=== PATIENT | female | born 1945 | race Caucasian/White ===

== ENCOUNTER 2018-03-22 17:56 | Inpatient (IN) | payer MEDICARE, MEDICAID ==
[2018-03-22] MEDS: LORAZEPAM 2 MG INJ IV (18:27)
[2018-03-22] MEDS: ASPIRIN 325 MG TAB PO (18:27)
[2018-03-22] MEDS: NITROGLYCERIN 2% 1 GM OINT PKT TD (18:27)
[2018-03-22 18:30] LABS: ADD MAN DIFF? NO
[2018-03-22 18:35] LABS: BASOPHIL # 0.1 10^3/ul (0.0-0.1); BASOPHILS % 0.8 % (0.0-2.0); EOSINOPHILS # 0.2 10^3/ul (0.0-0.5); EOSINOPHILS % 2.7 % (0.0-7.0); HEMATOCRIT 44.5 % (37.0-47.0); HEMOGLOBIN 14.8 g/dl (12.0-16.0); LYMPHOCYTES # 2.9 10^3/ul (0.8-2.9); LYMPHOCYTES % 38.9 % (15.0-51.0); MEAN CORPUSCULAR HEMOGLOBIN 31.8 pg (29.0-33.0); MEAN CORPUSCULAR HGB CONC 33.3 g/dl (32.0-37.0); MEAN CORPUSCULAR VOLUME 95.7 fl (82.0-101.0); MONOCYTE # 0.6 10^3/ul (0.3-0.9); MONOCYTES % 7.6 % (0.0-11.0); NEUTROPHIL # 3.7 10^3/ul (1.6-7.5); NEUTROPHILS % 49.9 % (39.0-77.0); PLATELET COUNT 218 10^3/UL (140-415); RED BLOOD COUNT 4.65 10^6/ul (4.20-5.40); RED CELL DISTRIBUTION WIDTH 12.6 % (11.5-14.5)
[2018-03-22 18:35] LABS: WHITE BLOOD COUNT 7.5 10^3/ul (4.8-10.8)
[2018-03-22] MEDS: ALBUTEROL 0.5% (NEB) 2.5 MG/0.5 ML AMP INH (18:35)
[2018-03-22] MEDS: IPRATROPIUM (NEB) 0.5 MG/2.5 ML AMP INH (18:35)
[2018-03-22 18:48] LABS: INR 1.14; PROTIME 14.7 Sec (11.9-14.9); PT RATIO 1.1
[2018-03-22 18:49] LABS: PARTIAL THROMBOPLASTIN TIME 30.8 Sec (23.0-35.0)
[2018-03-22 18:53] LABS: ALANINE AMINOTRANSFERASE 76 IU/L (13-69); ALBUMIN/GLOBULIN RATIO 1.14; ALKALINE PHOSPHATASE 169 IU/L (42-121); ANION GAP 7 (5-13); ASPARTATE AMINO TRANSFERASE 127 IU/L (15-46); BILIRUBIN,INDIRECT 0.3 mg/dl (0-1.1); BILIRUBIN,TOTAL 0.3 mg/dl (0.2-1.3); BLOOD UREA NITROGEN 14 mg/dl (7-20); CALCIUM 8.8 mg/dl (8.4-10.2); CARBON DIOXIDE 24 mmol/L (21-31); CHLORIDE 109 mmol/L (97-110); CREATINE KINASE 59 IU/L (23-200); CREATININE 0.78 mg/dl (0.44-1.00); GLUCOSE 363 mg/dl (70-220); POTASSIUM 4.4 mmol/L (3.5-5.1); SODIUM 140 mmol/L (135-144); TOTAL PROTEIN 7.5 g/dl (6.1-8.1)
[2018-03-22 19:05] LABS: B-TYPE NATRIURETIC PEPTIDE 2250 PG/ML (0-125); CK INDEX 1.4; CK-MB 0.83 ng/ml (0.0-2.4); TROPONIN-I < 0.012 ng/ml (0.000-0.120)
[2018-03-22] MEDS: ONDANSETRON (ODT) 4 MG TAB ODT (19:15)
[2018-03-22 19:31] LABS: ADD UMIC YES; UR ASCORBIC ACID NEGATIVE (NEGATIVE); UR BILIRUBIN (Dip) NEGATIVE (NEGATIVE); UR BLOOD (Dip) NEGATIVE (NEGATIVE); UR CLARITY CLEAR (CLEAR); UR COLOR YELLOW (YELLOW); UR GLUCOSE (Dip) 3+ mg/dL (NEGATIVE); UR KETONES (Dip) NEGATIVE (NEGATIVE); UR LEUKOCYTE ESTERASE (Dip) NEGATIVE Leu/ul (NEGATIVE); UR NITRITE (Dip) NEGATIVE (NEGATIVE); UR RBC 0 /HPF (0-5); UR SPECIFIC GRAVITY (Dip) 1.013 (1.003-1.030); UR TOTAL PROTEIN (Dip) 2+ mg/dl (NEGATIVE); UR UROBILINOGEN (Dip) NEGATIVE (NEGATIVE); UR WBC 0 /HPF (0-5)
[2018-03-22] MEDS: FUROSEMIDE 40 MG INJ IV (19:43)
[2018-03-22] MEDS ORDERED: ACETAMINOPHEN 325 MG TAB PO (20:00)
[2018-03-22] MEDS ORDERED: ONDANSETRON 4 MG INJ IV ×2 (20:00→21:00)
[2018-03-22 20:49] LABS: AADO2 Arterial 189.1 mmHg (7.0-24.0); Allen Test ACCEPTAB; Arterial Base Excess 1.2 mmol/L (-3.0-3); Arterial Blood Gas Oxygen Sat 99.1 mmHG (95.0-100.0); Arterial COHb 0.5 % (0.0-3.0); Arterial Fraction of Oxyhgb 98.3 % (93.0-99.0); Arterial HCO3 26.7 mmol/L (22.0-26.0); Arterial MetHb 0.3 % (0.0-1.5); Arterial pCO2 45.2 mmhg (35-45); Blood Gas IEPAP 15/5; Blood Gas PS 10; MODE MASK - BIPAP; Site Right Radial
[2018-03-22] MEDS ORDERED: NACL 0.9% 3 ML SYG IV (21:00)
[2018-03-22] MEDS ORDERED: morphine 2 MG INJ IV (21:00)
[2018-03-22] MEDS: FUROSEMIDE 20 MG INJ IV (21:00)
[2018-03-22] MEDS: POTASSIUM CHLORIDE (SR) 20 MEQ TAB PO (21:09)
[2018-03-22] MEDS: FAMOTIDINE 20 MG INJ IV (21:25)
[2018-03-22] MEDS: INSULIN LISPRO 100 UNIT/ML VIAL SC (21:30)
[2018-03-23] MEDS ORDERED: GLUCOSE GEL 15 GRAM TUBE BUCCAL (03:00)
[2018-03-23] MEDS ORDERED: GLUCAGON 1 MG INJ IM (03:00)
[2018-03-23] MEDS ORDERED: DEXTROSE 50% 50 ML SYRINGE IV ×2 (03:00)
[2018-03-23] MEDS ORDERED: GLUCOSE GEL 15 GRAM TUBE PO ×2 (03:00)
[2018-03-23 05:21] LABS: ADD MAN DIFF? NO
[2018-03-23 05:27] LABS: BASOPHILS % 0.6 % (0.0-2.0); EOSINOPHILS # 0.2 10^3/ul (0.0-0.5); EOSINOPHILS % 2.4 % (0.0-7.0); HEMATOCRIT 40.4 % (37.0-47.0); HEMOGLOBIN 13.5 g/dl (12.0-16.0); LYMPHOCYTES # 2.7 10^3/ul (0.8-2.9); MEAN CORPUSCULAR HEMOGLOBIN 31.9 pg (29.0-33.0); MEAN CORPUSCULAR HGB CONC 33.4 g/dl (32.0-37.0); MEAN CORPUSCULAR VOLUME 95.5 fl (82.0-101.0); MEAN PLATELET VOLUME 10.8 fl (7.4-10.4); MONOCYTE # 0.5 10^3/ul (0.3-0.9); MONOCYTES % 7.6 % (0.0-11.0); NEUTROPHIL # 3.3 10^3/ul (1.6-7.5); PLATELET COUNT 195 10^3/UL (140-415); RED BLOOD COUNT 4.23 10^6/ul (4.20-5.40); RED CELL DISTRIBUTION WIDTH 12.6 % (11.5-14.5)
[2018-03-23 05:27] LABS: WHITE BLOOD COUNT 6.8 10^3/ul (4.8-10.8)
[2018-03-23] MEDS: FUROSEMIDE 20 MG INJ IV ×2 (06:01→17:26)
[2018-03-23 06:06] LABS: ALANINE AMINOTRANSFERASE 69 IU/L (13-69); ALBUMIN 3.6 g/dl (3.3-4.9); ALBUMIN/GLOBULIN RATIO 1.16; ALKALINE PHOSPHATASE 134 IU/L (42-121); ANION GAP 8 (5-13); ASPARTATE AMINO TRANSFERASE 63 IU/L (15-46); BILIRUBIN,INDIRECT 0.4 mg/dl (0-1.1); BILIRUBIN,TOTAL 0.4 mg/dl (0.2-1.3); BLOOD UREA NITROGEN 16 mg/dl (7-20); CALCIUM 9.1 mg/dl (8.4-10.2); CARBON DIOXIDE 28 mmol/L (21-31); CHLORIDE 108 mmol/L (97-110); CREATININE 0.66 mg/dl (0.44-1.00); GLUCOSE 92 mg/dl (70-220); POTASSIUM 3.2 mmol/L (3.5-5.1); SODIUM 144 mmol/L (135-144); TOTAL PROTEIN 6.7 g/dl (6.1-8.1)
[2018-03-23] MEDS: INSULIN ASPART [NOVOLOG] 3 ML PEN SC ×4 (07:51→20:48)
[2018-03-23 08:03] LABS: HEMOGLOBIN A1C 13.7 % (0-5.9)
[2018-03-23] MEDS: FAMOTIDINE 20 MG INJ IV (08:43)
[2018-03-23] MEDS: ENOXAPARIN 30 MG/0.3 ML SYG SC (08:49)
[2018-03-23] MEDS: ACETAMINOPHEN 325 MG TAB PO (15:50)
[2018-03-23] MEDS: POTASSIUM CHLORIDE (SR) 20 MEQ TAB PO (20:12)
[2018-03-24] MEDS: FUROSEMIDE 20 MG INJ IV (05:16)
[2018-03-24] MEDS: ACETAMINOPHEN 325 MG TAB PO ×2 (06:04→15:32)
[2018-03-24] MEDS: INSULIN ASPART [NOVOLOG] 3 ML PEN SC ×5 (07:47→21:10)
[2018-03-24] MEDS: FAMOTIDINE 20 MG INJ IV (08:21)
[2018-03-24] MEDS: ENOXAPARIN 30 MG/0.3 ML SYG SC (08:42)
[2018-03-24] MEDS: hydrALAzine 20 MG INJ IV ×2 (14:31→18:41)
[2018-03-24 15:26] LABS: ANION GAP 8 (5-13); BLOOD UREA NITROGEN 22 mg/dl (7-20); CALCIUM 10.1 mg/dl (8.4-10.2); CARBON DIOXIDE 27 mmol/L (21-31); CHLORIDE 104 mmol/L (97-110); CREATINE KINASE 52 IU/L (23-200); CREATININE 0.68 mg/dl (0.44-1.00); GLUCOSE 255 mg/dl (70-220); POTASSIUM 4.4 mmol/L (3.5-5.1); SODIUM 139 mmol/L (135-144)
[2018-03-24 15:36] LABS: CK INDEX 1.6
[2018-03-24 15:38] LABS: TROPONIN-I < 0.012 ng/ml (0.000-0.120)
[2018-03-24 16:35] LABS: CK-MB 0.84 ng/ml (0.0-2.4)
[2018-03-24] MEDS: FUROSEMIDE 40 MG INJ IV (17:11)
[2018-03-24] MEDS: metFORMIN (XR) 500 MG TAB PO (20:12)
[2018-03-24] MEDS: LISINOPRIL 5 MG TAB PO (20:13)
[2018-03-24] MEDS: ATORVASTATIN 20 MG TAB PO (20:13)
[2018-03-24] MEDS: APIXABAN 5 MG TABLET PO (20:13)
[2018-03-24] MEDS: INSULIN GLARGINE [LANTus] (100 UNITS/ML) SYG SC (21:10)
[2018-03-24] MEDS ORDERED: morphine LIQ (10 MG/5 ML) CUP PO (23:00)
[2018-03-25] MEDS: ACETAMINOPHEN 325 MG TAB PO ×2 (00:39→17:51)
[2018-03-25] MEDS: ACCU-CHEK XX (01:23)
[2018-03-25] MEDS: FUROSEMIDE 40 MG INJ IV ×2 (05:14→17:10)
[2018-03-25 05:21] LABS: ADD MAN DIFF? NO
[2018-03-25 05:27] LABS: BASOPHIL # 0.1 10^3/ul (0.0-0.1); BASOPHILS % 0.7 % (0.0-2.0); EOSINOPHILS # 0.3 10^3/ul (0.0-0.5); EOSINOPHILS % 3.7 % (0.0-7.0); HEMATOCRIT 46.5 % (37.0-47.0); HEMOGLOBIN 15.6 g/dl (12.0-16.0); LYMPHOCYTES # 2.4 10^3/ul (0.8-2.9); LYMPHOCYTES % 32.9 % (15.0-51.0); MEAN CORPUSCULAR HEMOGLOBIN 31.6 pg (29.0-33.0); MEAN CORPUSCULAR HGB CONC 33.5 g/dl (32.0-37.0); MEAN CORPUSCULAR VOLUME 94.1 fl (82.0-101.0); MONOCYTE # 0.6 10^3/ul (0.3-0.9); NEUTROPHIL # 3.9 10^3/ul (1.6-7.5); NEUTROPHILS % 54.3 % (39.0-77.0); PLATELET COUNT 205 10^3/UL (140-415); RED BLOOD COUNT 4.94 10^6/ul (4.20-5.40); RED CELL DISTRIBUTION WIDTH 12.4 % (11.5-14.5)
[2018-03-25 05:27] LABS: WHITE BLOOD COUNT 7.2 10^3/ul (4.8-10.8)
[2018-03-25 05:44] LABS: MAGNESIUM 2.1 mg/dl (1.7-2.5)
[2018-03-25 05:45] LABS: CHOLESTEROL 155 mg/dl (100-200)
[2018-03-25 05:45] LABS: CHOL/HDL RATIO 3.9 RATIO; HDL CHOLESTEROL 39 mg/dl (33-92); LDL CHOLESTEROL,CALCULATED 89 mg/dl; TRIGLYCERIDES 137 mg/dl (0-149)
[2018-03-25 05:56] LABS: ANION GAP 11 (5-13); BLOOD UREA NITROGEN 17 mg/dl (7-20); CALCIUM 9.9 mg/dl (8.4-10.2); CARBON DIOXIDE 27 mmol/L (21-31); CHLORIDE 104 mmol/L (97-110); CREATININE 0.69 mg/dl (0.44-1.00); GLUCOSE 207 mg/dl (70-220); POTASSIUM 3.5 mmol/L (3.5-5.1); SODIUM 142 mmol/L (135-144)
[2018-03-25] MEDS: EMPAGLIFLOZIN 10 MG TABLET PO (07:56)
[2018-03-25] MEDS: INSULIN ASPART [NOVOLOG] 3 ML PEN SC ×7 (08:03→21:28)
[2018-03-25] MEDS: FAMOTIDINE 20 MG TAB PO (08:05)
[2018-03-25] MEDS: LINAGLIPTIN 5 MG TABLET PO (08:05)
[2018-03-25] MEDS: metFORMIN (XR) 500 MG TAB PO ×2 (08:05→20:57)
[2018-03-25] MEDS: APIXABAN 5 MG TABLET PO ×2 (08:05→20:57)
[2018-03-25] MEDS: LISINOPRIL 5 MG TAB PO (08:06)
[2018-03-25] MEDS: POTASSIUM CHLORIDE (SR) 20 MEQ TAB PO (12:06)
[2018-03-25] MEDS: ATORVASTATIN 20 MG TAB PO (20:57)
[2018-03-25] MEDS: LISINOPRIL 10 MG TAB PO (20:58)
[2018-03-25] MEDS: INSULIN GLARGINE [LANTus] (100 UNITS/ML) SYG SC (21:28)
[2018-03-26] MEDS: ACCU-CHEK XX (02:11)
[2018-03-26 05:33] LABS: ANION GAP 12 (5-13); BLOOD UREA NITROGEN 21 mg/dl (7-20); CALCIUM 9.7 mg/dl (8.4-10.2); CARBON DIOXIDE 28 mmol/L (21-31); CHLORIDE 101 mmol/L (97-110); CREATININE 0.87 mg/dl (0.44-1.00); GLUCOSE 166 mg/dl (70-220); POTASSIUM 3.8 mmol/L (3.5-5.1); SODIUM 141 mmol/L (135-144)
[2018-03-26] MEDS: INSULIN ASPART [NOVOLOG] 3 ML PEN SC ×7 (07:50→21:00)
[2018-03-26] MEDS: EMPAGLIFLOZIN 10 MG TABLET PO (07:53)
[2018-03-26] MEDS: FAMOTIDINE 20 MG TAB PO (08:16)
[2018-03-26] MEDS: LINAGLIPTIN 5 MG TABLET PO (08:16)
[2018-03-26] MEDS: APIXABAN 5 MG TABLET PO ×2 (08:16→21:25)
[2018-03-26] MEDS: FUROSEMIDE 40 MG INJ IV (08:17)
[2018-03-26] MEDS: LISINOPRIL 10 MG TAB PO ×2 (08:17→21:25)
[2018-03-26] MEDS: metFORMIN (XR) 500 MG TAB PO ×2 (08:17→21:25)
[2018-03-26] MEDS: ATORVASTATIN 20 MG TAB PO (21:25)
[2018-03-26] MEDS: INSULIN GLARGINE [LANTus] (100 UNITS/ML) SYG SC (21:35)
[2018-03-26] MEDS: ACETAMINOPHEN 325 MG TAB PO (23:15)
[2018-03-27] MEDS: ACCU-CHEK XX (02:00)
[2018-03-27] MEDS: ACETAMINOPHEN 325 MG TAB PO ×2 (05:42→19:31)
[2018-03-27 05:43] LABS: ANION GAP 12 (5-13); BLOOD UREA NITROGEN 26 mg/dl (7-20); CALCIUM 9.4 mg/dl (8.4-10.2); CARBON DIOXIDE 27 mmol/L (21-31); CHLORIDE 100 mmol/L (97-110); CREATININE 0.83 mg/dl (0.44-1.00); GLUCOSE 114 mg/dl (70-220); POTASSIUM 3.5 mmol/L (3.5-5.1); SODIUM 139 mmol/L (135-144)
[2018-03-27] MEDS: INSULIN ASPART [NOVOLOG] 3 ML PEN SC ×7 (07:22→20:28)
[2018-03-27] MEDS: FAMOTIDINE 20 MG TAB PO (07:39)
[2018-03-27] MEDS: LISINOPRIL 10 MG TAB PO ×2 (07:39→20:28)
[2018-03-27] MEDS: EMPAGLIFLOZIN 10 MG TABLET PO (07:39)
[2018-03-27] MEDS: LINAGLIPTIN 5 MG TABLET PO (07:39)
[2018-03-27] MEDS: APIXABAN 5 MG TABLET PO (07:39)
[2018-03-27] MEDS: metFORMIN (XR) 500 MG TAB PO ×2 (07:40→20:27)
[2018-03-27] MEDS: FUROSEMIDE 40 MG TAB PO (08:42)
[2018-03-27] MEDS ORDERED: RIVAROXABAN 20 MG TABLET PO (18:00)
[2018-03-27] MEDS: RIVAROXABAN 15 MG TABLET PO (18:57)
[2018-03-27] MEDS: ATORVASTATIN 20 MG TAB PO (20:26)
[2018-03-27] MEDS: INSULIN GLARGINE [LANTus] (100 UNITS/ML) SYG SC (21:14)
[2018-03-28] MEDS: ACCU-CHEK XX (02:00)
[2018-03-28 06:57] LABS: ANION GAP 10 (5-13); BLOOD UREA NITROGEN 29 mg/dl (7-20); CALCIUM 9.6 mg/dl (8.4-10.2); CARBON DIOXIDE 27 mmol/L (21-31); CHLORIDE 102 mmol/L (97-110); CREATININE 0.89 mg/dl (0.44-1.00); GLUCOSE 104 mg/dl (70-220); POTASSIUM 3.6 mmol/L (3.5-5.1); SODIUM 139 mmol/L (135-144)
[2018-03-28] MEDS: INSULIN ASPART [NOVOLOG] 3 ML PEN SC ×7 (07:34→21:00)
[2018-03-28] MEDS: FUROSEMIDE 40 MG TAB PO (08:07)
[2018-03-28] MEDS: LISINOPRIL 10 MG TAB PO ×2 (08:08→21:32)
[2018-03-28] MEDS: LINAGLIPTIN 5 MG TABLET PO (08:08)
[2018-03-28] MEDS: FAMOTIDINE 20 MG TAB PO (08:08)
[2018-03-28] MEDS: metFORMIN (XR) 500 MG TAB PO ×2 (08:08→21:23)
[2018-03-28] MEDS: EMPAGLIFLOZIN 10 MG TABLET PO (08:39)
[2018-03-28] MEDS: RIVAROXABAN 15 MG TABLET PO (18:36)
[2018-03-28] MEDS: ACETAMINOPHEN 325 MG TAB PO (19:12)
[2018-03-28] MEDS: ATORVASTATIN 20 MG TAB PO (21:23)
[2018-03-28] MEDS: INSULIN GLARGINE [LANTus] (100 UNITS/ML) SYG SC (21:42)
[2018-03-29] MEDS: ACCU-CHEK XX (02:00)
[2018-03-29 06:53] LABS: ANION GAP 9 (5-13); BLOOD UREA NITROGEN 29 mg/dl (7-20); CALCIUM 9.4 mg/dl (8.4-10.2); CARBON DIOXIDE 27 mmol/L (21-31); CHLORIDE 103 mmol/L (97-110); CREATININE 0.76 mg/dl (0.44-1.00); GLUCOSE 88 mg/dl (70-220); POTASSIUM 3.6 mmol/L (3.5-5.1); SODIUM 139 mmol/L (135-144)
[2018-03-29] MEDS: EMPAGLIFLOZIN 10 MG TABLET PO (09:36)
[2018-03-29] MEDS: metFORMIN (XR) 500 MG TAB PO ×2 (09:36→20:47)
[2018-03-29] MEDS: LINAGLIPTIN 5 MG TABLET PO (09:36)
[2018-03-29] MEDS: FAMOTIDINE 20 MG TAB PO (09:36)
[2018-03-29] MEDS: FUROSEMIDE 40 MG TAB PO (09:37)
[2018-03-29] MEDS: LISINOPRIL 10 MG TAB PO ×2 (09:37→20:46)
[2018-03-29] MEDS: INSULIN ASPART [NOVOLOG] 3 ML PEN SC ×7 (10:12→20:46)
[2018-03-29] MEDS: RIVAROXABAN 15 MG TABLET PO (17:52)
[2018-03-29] MEDS: INSULIN GLARGINE [LANTus] (100 UNITS/ML) SYG SC (20:44)
[2018-03-29] MEDS: ATORVASTATIN 20 MG TAB PO (20:45)
[2018-03-29] MEDS: ACETAMINOPHEN 325 MG TAB PO (22:17)
[2018-03-30] MEDS: ACCU-CHEK XX (02:00)
[2018-03-30 06:32] LABS: ADD MAN DIFF? NO
[2018-03-30 06:49] LABS: BASOPHIL # 0.1 10^3/ul (0.0-0.1); EOSINOPHILS # 0.3 10^3/ul (0.0-0.5); EOSINOPHILS % 3.8 % (0.0-7.0); HEMATOCRIT 46.9 % (37.0-47.0); HEMOGLOBIN 15.4 g/dl (12.0-16.0); MEAN CORPUSCULAR HEMOGLOBIN 31.5 pg (29.0-33.0); MEAN CORPUSCULAR HGB CONC 32.8 g/dl (32.0-37.0); MEAN CORPUSCULAR VOLUME 95.9 fl (82.0-101.0); MEAN PLATELET VOLUME 11.4 fl (7.4-10.4); MONOCYTE # 0.7 10^3/ul (0.3-0.9); MONOCYTES % 9.7 % (0.0-11.0); NEUTROPHIL # 3.6 10^3/ul (1.6-7.5); NEUTROPHILS % 46.4 % (39.0-77.0); PLATELET COUNT 195 10^3/UL (140-415); RED BLOOD COUNT 4.89 10^6/ul (4.20-5.40); RED CELL DISTRIBUTION WIDTH 12.7 % (11.5-14.5)
[2018-03-30 06:49] LABS: WHITE BLOOD COUNT 7.7 10^3/ul (4.8-10.8)
[2018-03-30 07:19] LABS: ANION GAP 14 (5-13); BLOOD UREA NITROGEN 30 mg/dl (7-20); CALCIUM 9.7 mg/dl (8.4-10.2); CARBON DIOXIDE 27 mmol/L (21-31); CHLORIDE 101 mmol/L (97-110); CREATININE 0.83 mg/dl (0.44-1.00); GLUCOSE 105 mg/dl (70-220); POTASSIUM 3.7 mmol/L (3.5-5.1); SODIUM 142 mmol/L (135-144)
[2018-03-30] MEDS: INSULIN ASPART [NOVOLOG] 3 ML PEN SC ×7 (08:00→21:00)
[2018-03-30] MEDS: FAMOTIDINE 20 MG TAB PO (08:47)
[2018-03-30] MEDS: LISINOPRIL 10 MG TAB PO ×2 (08:48→21:11)
[2018-03-30] MEDS: FUROSEMIDE 40 MG TAB PO (08:48)
[2018-03-30] MEDS: metFORMIN (XR) 500 MG TAB PO ×2 (08:48→21:10)
[2018-03-30] MEDS: EMPAGLIFLOZIN 10 MG TABLET PO (08:48)
[2018-03-30] MEDS: LINAGLIPTIN 5 MG TABLET PO (08:49)
[2018-03-30] MEDS: RIVAROXABAN 15 MG TABLET PO (17:45)
[2018-03-30] MEDS: INSULIN GLARGINE [LANTus] (100 UNITS/ML) SYG SC (20:00)
[2018-03-30] MEDS: ATORVASTATIN 20 MG TAB PO (21:10)
[2018-03-30] MEDS: ACETAMINOPHEN 325 MG TAB PO (21:11)
[2018-03-31] MEDS: ACCU-CHEK XX (02:00)
[2018-03-31] MEDS: INSULIN ASPART [NOVOLOG] 3 ML PEN SC ×7 (07:58→20:15)
[2018-03-31] MEDS: metFORMIN (XR) 500 MG TAB PO ×2 (08:05→21:54)
[2018-03-31] MEDS: FUROSEMIDE 40 MG TAB PO (08:06)
[2018-03-31] MEDS: LISINOPRIL 10 MG TAB PO ×2 (08:06→20:13)
[2018-03-31] MEDS: LINAGLIPTIN 5 MG TABLET PO (08:06)
[2018-03-31] MEDS: FAMOTIDINE 20 MG TAB PO (08:06)
[2018-03-31] MEDS: EMPAGLIFLOZIN 10 MG TABLET PO (08:07)
[2018-03-31] MEDS: RIVAROXABAN 15 MG TABLET PO (17:23)
[2018-03-31] MEDS: ATORVASTATIN 20 MG TAB PO (20:12)
[2018-03-31] MEDS: INSULIN GLARGINE [LANTus] (100 UNITS/ML) SYG SC (20:47)
[2018-04-01] MEDS: ACCU-CHEK XX (01:54)
[2018-04-01] MEDS: INSULIN ASPART [NOVOLOG] 3 ML PEN SC ×2 (08:00→08:06)
[2018-04-01] MEDS: EMPAGLIFLOZIN 10 MG TABLET PO (08:04)
[2018-04-01] MEDS: metFORMIN (XR) 500 MG TAB PO (08:18)
[2018-04-01] MEDS: FUROSEMIDE 40 MG TAB PO (08:18)
[2018-04-01] MEDS: FAMOTIDINE 20 MG TAB PO (08:18)
[2018-04-01] MEDS: LISINOPRIL 10 MG TAB PO (08:19)
[2018-04-01] MEDS: LINAGLIPTIN 5 MG TABLET PO (08:19)
== END 2018-04-01 09:50 | disposition home or self-care (01) | DRG 293 ==
LOC: E/R 17:56 → 6WM 19:58
PROC: 5A09357 Assistance with Respiratory Ventilation, Less than 24 Consecutive Hours, Continuous Positive Airway Pressure (ICD-10-PCS; principal; 2018-03-22)
PROC: 4A033R1 Measurement of Arterial Saturation, Peripheral, Percutaneous Approach (ICD-10-PCS; 2018-03-22)
DX: I11.0 Hypertensive heart disease with heart failure (principal); I50.23 Acute on chronic systolic (congestive) heart failure; E11.65 Type 2 diabetes mellitus with hyperglycemia; I48.91 Unspecified atrial fibrillation; E11.21 Type 2 diabetes mellitus with diabetic nephropathy; I25.10 Atherosclerotic heart disease of native coronary artery without angina pectoris; E78.5 Hyperlipidemia, unspecified; I25.5 Ischemic cardiomyopathy; K21.9 Gastro-esophageal reflux disease without esophagitis; I25.2 Old myocardial infarction; Z82.49 Family history of ischemic heart disease and other diseases of the circulatory system; Z79.4 Long term (current) use of insulin
CPT/HCPCS: 36600; 71045; 80048; 80053; 80061; 81001; 82550; 82553; 82803; 82962; 83036; 83605; 83735; 83880; 84484; 85025; 85610; 85730; 87040; 87086; 87400; 93005; 93306; 94644; 94660; 96374; 96375; 97116; 97162; 97530; 99291-25

== ENCOUNTER 2018-04-08 09:23 | Inpatient (IN) | payer MEDICARE, MEDICAID, OTHER ==
[2018-04-08] MEDS ORDERED: HEPARIN 1000 UNITS/ML 10 ML INJ (13:16)
[2018-04-08] MEDS ORDERED: LIDOCAINE 1% (MDV) 20 ML INJ (13:16)
[2018-04-08] MEDS ORDERED: MIDAZOLAM 1 MG/ML 2 ML INJ (13:16)
[2018-04-08] MEDS ORDERED: FENTAnyl 50 MCG/ML VIAL (13:17)
[2018-04-08] MEDS ORDERED: VERAPAMIL 5 MG INJ (13:17)
[2018-04-08] MEDS ORDERED: IODIXANOL LOCM 100 ML BTL ×2 (13:17→14:11)
[2018-04-08] MEDS ORDERED: NITROGLYCERIN (IC) 100 MCG/ML INJ (13:17)
[2018-04-08] MEDS ORDERED: ASPIRIN 325 MG TAB (14:02)
[2018-04-08] MEDS ORDERED: TICAGRELOR 90 MG TABLET (14:02)
[2018-04-08] MEDS ORDERED: AL HYDROX/MG HYDROX/SIMETH 30 ML CUP PO (14:30)
[2018-04-08] MEDS ORDERED: ONDANSETRON 4 MG INJ IV (14:30)
[2018-04-08] MEDS ORDERED: ACETAMINOPHEN 325 MG TAB PO (14:30)
[2018-04-08] MEDS ORDERED: morphine 2 MG INJ IV (14:30)
[2018-04-08] MEDS: SOD CHLORIDE 0.9% 1,000 ML IV (14:38)
[2018-04-08] MEDS: INSULIN ASPART [NOVOLOG] 3 ML PEN SC ×3 (14:49→21:05)
[2018-04-08] MEDS ORDERED: GLUCOSE GEL 15 GRAM TUBE PO ×2 (15:00)
[2018-04-08] MEDS ORDERED: DEXTROSE 50% 50 ML SYRINGE IV ×2 (15:00)
[2018-04-08] MEDS ORDERED: GLUCAGON 1 MG INJ IM (15:00)
[2018-04-08] MEDS ORDERED: GLUCOSE GEL 15 GRAM TUBE BUCCAL (15:00)
[2018-04-08] MEDS: LORAZEPAM 0.5 MG TAB PO (18:53)
[2018-04-08] MEDS ORDERED: NACL 0.9% 3 ML SYG IV (19:00)
[2018-04-08] MEDS ORDERED: DOCUSATE SODIUM 100 MG CAP PO (19:00)
[2018-04-08] MEDS: ATORVASTATIN 80 MG TAB PO (21:05)
[2018-04-08] MEDS: INSULIN GLARGINE [LANTus] (100 UNITS/ML) SYG SC (21:16)
[2018-04-08] MEDS: TICAGRELOR 90 MG TABLET PO (21:16)
[2018-04-08] MEDS: OXYCODONE/ACETAMINOPHEN (5/325) TAB PO (22:19)
[2018-04-09] MEDS: ACCU-CHEK XX (02:54)
[2018-04-09 06:13] LABS: ADD MAN DIFF? NO
[2018-04-09 06:25] LABS: BASOPHIL # 0.1 10^3/ul (0.0-0.1); BASOPHILS % 0.6 % (0.0-2.0); EOSINOPHILS # 0.2 10^3/ul (0.0-0.5); EOSINOPHILS % 1.9 % (0.0-7.0); HEMOGLOBIN 14.1 g/dl (12.0-16.0); LYMPHOCYTES # 1.7 10^3/ul (0.8-2.9); LYMPHOCYTES % 16.6 % (15.0-51.0); MEAN CORPUSCULAR HEMOGLOBIN 31.2 pg (29.0-33.0); MEAN CORPUSCULAR HGB CONC 33.6 g/dl (32.0-37.0); MEAN CORPUSCULAR VOLUME 92.9 fl (82.0-101.0); MEAN PLATELET VOLUME 10.9 fl (7.4-10.4); MONOCYTE # 0.7 10^3/ul (0.3-0.9); MONOCYTES % 7.1 % (0.0-11.0); NEUTROPHIL # 7.3 10^3/ul (1.6-7.5); NEUTROPHILS % 73.5 % (39.0-77.0); PLATELET COUNT 180 10^3/UL (140-415); RED BLOOD COUNT 4.52 10^6/ul (4.20-5.40); RED CELL DISTRIBUTION WIDTH 12.7 % (11.5-14.5)
[2018-04-09] MEDS: PANTOPRAZOLE 40 MG INJ IV (06:32)
[2018-04-09 06:38] LABS: ANION GAP 10 (5-13); BLOOD UREA NITROGEN 15 mg/dl (7-20); CALCIUM 9.5 mg/dl (8.4-10.2); CARBON DIOXIDE 24 mmol/L (21-31); CHLORIDE 109 mmol/L (97-110); CREATINE KINASE 23 IU/L (23-200); CREATININE 0.69 mg/dl (0.44-1.00); GLUCOSE 174 mg/dl (70-220); POTASSIUM 3.7 mmol/L (3.5-5.1); SODIUM 143 mmol/L (135-144)
[2018-04-09 06:39] LABS: PHOSPHORUS 3.9 mg/dl (2.5-4.9)
[2018-04-09 06:43] LABS: CK INDEX 4.3
[2018-04-09 06:47] LABS: TROPONIN-I 0.162 ng/ml (0.000-0.120)
[2018-04-09] MEDS: INSULIN ASPART [NOVOLOG] 3 ML PEN SC ×5 (07:53→21:31)
[2018-04-09] MEDS: ASPIRIN (EC) 81 MG TAB PO (08:43)
[2018-04-09] MEDS: TICAGRELOR 90 MG TABLET PO ×2 (08:44→21:31)
[2018-04-09] MEDS: FUROSEMIDE 40 MG INJ IV (11:23)
[2018-04-09] MEDS ORDERED: hydrALAzine 20 MG INJ IV (16:30)
[2018-04-09] MEDS: ATORVASTATIN 80 MG TAB PO (21:24)
[2018-04-09] MEDS: ZOLPIDEM 5 MG TAB PO (21:25)
[2018-04-09] MEDS: INSULIN GLARGINE [LANTus] (100 UNITS/ML) SYG SC (21:31)
[2018-04-10] MEDS: ACCU-CHEK XX (02:53)
[2018-04-10] MEDS: PANTOPRAZOLE 40 MG INJ IV (06:23)
[2018-04-10 06:56] LABS: ANION GAP 9 (5-13); BLOOD UREA NITROGEN 19 mg/dl (7-20); CALCIUM 9.4 mg/dl (8.4-10.2); CARBON DIOXIDE 25 mmol/L (21-31); CHLORIDE 108 mmol/L (97-110); CREATININE 0.69 mg/dl (0.44-1.00); GLUCOSE 192 mg/dl (70-220); POTASSIUM 3.5 mmol/L (3.5-5.1); SODIUM 142 mmol/L (135-144)
[2018-04-10 06:59] LABS: PHOSPHORUS 4.4 mg/dl (2.5-4.9)
[2018-04-10 06:59] LABS: MAGNESIUM 1.9 mg/dl (1.7-2.5)
[2018-04-10 07:02] LABS: CK-MB 0.67 ng/ml (0.0-2.4); TROPONIN-I 0.072 ng/ml (0.000-0.120)
[2018-04-10 07:06] LABS: CK INDEX 2.6; CREATINE KINASE 26 IU/L (23-200)
[2018-04-10] MEDS: INSULIN ASPART [NOVOLOG] 3 ML PEN SC ×7 (08:13→20:13)
[2018-04-10] MEDS: TICAGRELOR 90 MG TABLET PO ×2 (09:15→20:13)
[2018-04-10] MEDS: ASPIRIN (EC) 81 MG TAB PO (09:15)
[2018-04-10] MEDS: FUROSEMIDE 40 MG INJ IV (09:15)
[2018-04-10] MEDS: ACETAMINOPHEN 325 MG TAB PO (19:58)
[2018-04-10] MEDS: ZOLPIDEM 5 MG TAB PO (20:01)
[2018-04-10] MEDS: ATORVASTATIN 80 MG TAB PO (20:01)
[2018-04-10] MEDS: INSULIN GLARGINE [LANTus] (100 UNITS/ML) SYG SC (20:13)
[2018-04-10] MEDS: BENAZEPRIL 10 MG TAB PO (21:09)
[2018-04-11] MEDS: ACCU-CHEK XX (02:00)
[2018-04-11] MEDS: PANTOPRAZOLE (EC) 40 MG TAB PO (06:25)
[2018-04-11] MEDS: INSULIN ASPART [NOVOLOG] 3 ML PEN SC ×4 (07:37→12:04)
[2018-04-11] MEDS: CLOPIDOGREL 75 MG TAB PO (09:31)
[2018-04-11] MEDS: FUROSEMIDE 40 MG INJ IV (09:31)
[2018-04-11] MEDS: BENAZEPRIL 10 MG TAB PO (09:31)
[2018-04-11] MEDS: ASPIRIN (EC) 81 MG TAB PO (09:31)
[2018-04-11 10:25] LABS: ANION GAP 11 (5-13); BLOOD UREA NITROGEN 22 mg/dl (7-20); CALCIUM 9.8 mg/dl (8.4-10.2); CARBON DIOXIDE 22 mmol/L (21-31); CHLORIDE 106 mmol/L (97-110); CREATININE 0.76 mg/dl (0.44-1.00); GLUCOSE 290 mg/dl (70-220); SODIUM 139 mmol/L (135-144)
[2018-04-12] MEDS ORDERED: CLOPIDOGREL 75 MG TAB PO (09:00)
== END 2018-04-11 16:35 | disposition home or self-care (01) | DRG 246 ==
LOC: SDS 09:23 → TEL 04-09 06:58 → SDS 09:23 → REC 14:16 → TEL 15:41
PROVIDERS: Internal Medicine
PROC: 027034Z Dilation of Coronary Artery, One Artery with Drug-eluting Intraluminal Device, Percutaneous Approach (ICD-10-PCS; principal; 2018-04-08 12:30)
PROC: 4A023N7 Measurement of Cardiac Sampling and Pressure, Left Heart, Percutaneous Approach (ICD-10-PCS; 2018-04-08 12:30)
PROC: B211YZZ Fluoroscopy of Multiple Coronary Arteries using Other Contrast (ICD-10-PCS; 2018-04-08 12:30)
DX: I21.4 Non-ST elevation (NSTEMI) myocardial infarction (principal); I50.23 Acute on chronic systolic (congestive) heart failure; I42.9 Cardiomyopathy, unspecified; I11.0 Hypertensive heart disease with heart failure; I25.10 Atherosclerotic heart disease of native coronary artery without angina pectoris; I48.91 Unspecified atrial fibrillation; E78.5 Hyperlipidemia, unspecified; E66.9 Obesity, unspecified; E11.65 Type 2 diabetes mellitus with hyperglycemia; Z68.32 Body mass index [BMI] 32.0-32.9, adult
CPT/HCPCS: 71045; 80048; 82550; 82553; 82962; 83735; 84100; 84484; 85025; 93005; 93458; 97116; 97162; 97530; 99217; G0378

== ENCOUNTER 2018-05-20 15:46 | Inpatient (IN) | payer MEDICARE, MEDICAID ==
[2018-05-20 17:03] LABS: ADD MAN DIFF? NO
[2018-05-20 17:04] LABS: BASOPHIL # 0.1 10^3/ul (0.0-0.1); BASOPHILS % 0.9 % (0.0-2.0); EOSINOPHILS # 0.3 10^3/ul (0.0-0.5); EOSINOPHILS % 3.3 % (0.0-7.0); HEMATOCRIT 43.9 % (37.0-47.0); HEMOGLOBIN 14.6 g/dl (12.0-16.0); LYMPHOCYTES # 2.3 10^3/ul (0.8-2.9); LYMPHOCYTES % 30.4 % (15.0-51.0); MEAN CORPUSCULAR HEMOGLOBIN 31.7 pg (29.0-33.0); MEAN CORPUSCULAR HGB CONC 33.3 g/dl (32.0-37.0); MEAN CORPUSCULAR VOLUME 95.2 fl (82.0-101.0); MEAN PLATELET VOLUME 10.5 fl (7.4-10.4); MONOCYTE # 0.5 10^3/ul (0.3-0.9); MONOCYTES % 7.1 % (0.0-11.0); NEUTROPHIL # 4.4 10^3/ul (1.6-7.5); PLATELET COUNT 210 10^3/UL (140-415); RED BLOOD COUNT 4.61 10^6/ul (4.20-5.40); RED CELL DISTRIBUTION WIDTH 13.3 % (11.5-14.5)
[2018-05-20 17:04] LABS: WHITE BLOOD COUNT 7.6 10^3/ul (4.8-10.8)
[2018-05-20 17:09] LABS: INR 1.16; PROTIME 14.9 Sec (11.9-14.9); PT RATIO 1.2
[2018-05-20 17:10] LABS: PARTIAL THROMBOPLASTIN TIME 35.5 Sec (23.0-35.0)
[2018-05-20 17:14] LABS: ALANINE AMINOTRANSFERASE 74 IU/L (13-69); ALBUMIN 4.3 g/dl (3.3-4.9); ALBUMIN/GLOBULIN RATIO 1.22; ALKALINE PHOSPHATASE 159 IU/L (42-121); ANION GAP 12 (5-13); ASPARTATE AMINO TRANSFERASE 114 IU/L (15-46); BILIRUBIN,INDIRECT 0.4 mg/dl (0-1.1); BILIRUBIN,TOTAL 0.4 mg/dl (0.2-1.3); BLOOD UREA NITROGEN 20 mg/dl (7-20); CALCIUM 9.7 mg/dl (8.4-10.2); CARBON DIOXIDE 23 mmol/L (21-31); CHLORIDE 108 mmol/L (97-110); CREATININE 0.87 mg/dl (0.44-1.00); GLUCOSE 152 mg/dl (70-220); POTASSIUM 4.2 mmol/L (3.5-5.1); SODIUM 143 mmol/L (135-144); TOTAL PROTEIN 7.8 g/dl (6.1-8.1)
[2018-05-20 17:23] LABS: B-TYPE NATRIURETIC PEPTIDE 1620 PG/ML (0-125)
[2018-05-20 17:39] LABS: TROPONIN-I < 0.012 ng/ml (0.000-0.120)
[2018-05-20] MEDS: FUROSEMIDE 40 MG INJ IV (19:04)
[2018-05-20] MEDS ORDERED: ALBUTEROL/IPRATROPIUM (NEB) 3 ML AMP NEB (20:00)
[2018-05-20] MEDS ORDERED: NITROGLYCERIN (SL) 0.4 MG TAB SL ×2 (20:00)
[2018-05-20] MEDS: NITROGLYCERIN 50 MG/D5W (PMX) 250 ML IV (21:44)
[2018-05-20] MEDS: ATORVASTATIN 80 MG TAB PO (22:56)
[2018-05-20] MEDS: BENAZEPRIL 10 MG TAB PO (22:56)
[2018-05-20] MEDS: DOCUSATE SODIUM 100 MG CAP PO (22:56)
[2018-05-20] MEDS ORDERED: DEXTROSE 50% 50 ML SYRINGE IV ×2 (23:45)
[2018-05-20] MEDS ORDERED: GLUCOSE GEL 15 GRAM TUBE PO ×2 (23:45)
[2018-05-20] MEDS ORDERED: GLUCOSE GEL 15 GRAM TUBE BUCCAL (23:45)
[2018-05-20] MEDS ORDERED: GLUCAGON 1 MG INJ IM (23:45)
[2018-05-21] MEDS: NITROGLYCERIN 50 MG/D5W (PMX) 250 ML IV ×3 (00:04→10:40)
[2018-05-21] MEDS: ACCU-CHEK XX (02:29)
[2018-05-21 05:14] LABS: ADD MAN DIFF? NO
[2018-05-21 05:24] LABS: BASOPHIL # 0.1 10^3/ul (0.0-0.1); BASOPHILS % 0.8 % (0.0-2.0); EOSINOPHILS # 0.2 10^3/ul (0.0-0.5); EOSINOPHILS % 2.8 % (0.0-7.0); HEMATOCRIT 40.1 % (37.0-47.0); HEMOGLOBIN 13.3 g/dl (12.0-16.0); LYMPHOCYTES # 2.1 10^3/ul (0.8-2.9); LYMPHOCYTES % 26.7 % (15.0-51.0); MEAN CORPUSCULAR HEMOGLOBIN 31.7 pg (29.0-33.0); MEAN CORPUSCULAR HGB CONC 33.2 g/dl (32.0-37.0); MEAN CORPUSCULAR VOLUME 95.7 fl (82.0-101.0); MEAN PLATELET VOLUME 10.7 fl (7.4-10.4); MONOCYTE # 0.6 10^3/ul (0.3-0.9); MONOCYTES % 7.9 % (0.0-11.0); NEUTROPHIL # 4.8 10^3/ul (1.6-7.5); NEUTROPHILS % 61.4 % (39.0-77.0); PLATELET COUNT 190 10^3/UL (140-415); RED BLOOD COUNT 4.19 10^6/ul (4.20-5.40); RED CELL DISTRIBUTION WIDTH 13.1 % (11.5-14.5)
[2018-05-21 05:24] LABS: WHITE BLOOD COUNT 7.8 10^3/ul (4.8-10.8)
[2018-05-21] MEDS: PANTOPRAZOLE (EC) 40 MG TAB PO (05:28)
[2018-05-21 05:42] LABS: ANION GAP 7 (5-13); BLOOD UREA NITROGEN 17 mg/dl (7-20); CALCIUM 9.2 mg/dl (8.4-10.2); CARBON DIOXIDE 28 mmol/L (21-31); CHLORIDE 107 mmol/L (97-110); CREATININE 0.74 mg/dl (0.44-1.00); GLUCOSE 211 mg/dl (70-220); POTASSIUM 3.6 mmol/L (3.5-5.1); SODIUM 142 mmol/L (135-144)
[2018-05-21] MEDS: INSULIN GLARGINE [LANTus] (100 UNITS/ML) SYG SC (08:11)
[2018-05-21] MEDS: INSULIN ASPART [NOVOLOG] 3 ML PEN SC ×4 (08:12→20:56)
[2018-05-21] MEDS: CLOPIDOGREL 75 MG TAB PO (08:37)
[2018-05-21] MEDS: DOCUSATE SODIUM 100 MG CAP PO ×2 (08:37→20:55)
[2018-05-21] MEDS: BENAZEPRIL 10 MG TAB PO ×2 (08:37→20:55)
[2018-05-21] MEDS: FUROSEMIDE 40 MG TAB PO (08:38)
[2018-05-21] MEDS: APIXABAN 5 MG TABLET PO ×2 (08:38→20:55)
[2018-05-21] MEDS ORDERED: ENOXAPARIN 40 MG/0.4 ML SYG SC (09:00)
[2018-05-21 12:05] LABS: PHOSPHORUS 3.5 mg/dl (2.5-4.9)
[2018-05-21 12:05] LABS: MAGNESIUM 1.9 mg/dl (1.7-2.5)
[2018-05-21] MEDS: FUROSEMIDE 40 MG INJ IV ×2 (12:36→19:36)
[2018-05-21] MEDS: MAGNESIUM SULFATE 2 GM/50 ML 50 ML IVPB (13:05)
[2018-05-21] MEDS: ACETAMINOPHEN 650MG/20.3ML CUP PO (16:34)
[2018-05-22 01:33] LABS: CREATINE KINASE 52 IU/L (23-200)
[2018-05-22] MEDS: ACCU-CHEK XX (01:44)
[2018-05-22 01:47] LABS: CK INDEX 1.3; CK-MB 0.65 ng/ml (0.0-2.4); TROPONIN-I < 0.012 ng/ml (0.000-0.120)
[2018-05-22] MEDS: PANTOPRAZOLE (EC) 40 MG TAB PO (05:10)
[2018-05-22] MEDS: FUROSEMIDE 40 MG INJ IV ×2 (05:10→18:08)
[2018-05-22 06:09] LABS: CREATINE KINASE 57 IU/L (23-200)
[2018-05-22 06:12] LABS: CHOLESTEROL 127 mg/dl (100-200)
[2018-05-22 06:12] LABS: CHOL/HDL RATIO 3.3 RATIO; HDL CHOLESTEROL 38 mg/dl (33-92); LDL CHOLESTEROL,CALCULATED 66 mg/dl; TRIGLYCERIDES 117 mg/dl (0-149)
[2018-05-22 06:17] LABS: CK-MB 0.55 ng/ml (0.0-2.4); TROPONIN-I < 0.012 ng/ml (0.000-0.120)
[2018-05-22] MEDS: CLOPIDOGREL 75 MG TAB PO (08:48)
[2018-05-22] MEDS: APIXABAN 5 MG TABLET PO ×2 (08:49→20:07)
[2018-05-22] MEDS: BENAZEPRIL 10 MG TAB PO ×2 (08:49→20:07)
[2018-05-22] MEDS: DOCUSATE SODIUM 100 MG CAP PO ×2 (08:49→20:07)
[2018-05-22] MEDS: INSULIN ASPART [NOVOLOG] 3 ML PEN SC ×4 (08:50→20:33)
[2018-05-22] MEDS: INSULIN GLARGINE [LANTus] (100 UNITS/ML) SYG SC (08:51)
[2018-05-22] MEDS: ONDANSETRON 4 MG INJ IV (15:41)
[2018-05-23] MEDS: ACCU-CHEK XX (02:00)
[2018-05-23] MEDS: PANTOPRAZOLE (EC) 40 MG TAB PO (06:55)
[2018-05-23] MEDS: FUROSEMIDE 40 MG INJ IV ×2 (06:55→17:27)
[2018-05-23] MEDS: INSULIN ASPART [NOVOLOG] 3 ML PEN SC ×4 (08:00→21:44)
[2018-05-23] MEDS: INSULIN GLARGINE [LANTus] (100 UNITS/ML) SYG SC (08:00)
[2018-05-23] MEDS: BENAZEPRIL 10 MG TAB PO ×2 (08:42→21:00)
[2018-05-23] MEDS: DOCUSATE SODIUM 100 MG CAP PO ×2 (08:43→21:36)
[2018-05-23] MEDS: APIXABAN 5 MG TABLET PO ×2 (08:43→21:36)
[2018-05-23] MEDS: CLOPIDOGREL 75 MG TAB PO (08:43)
[2018-05-23 18:27] LABS: AADO2 Arterial 9.4 mmHg (7.0-24.0); Allen Test ACCEPTAB; Arterial Base Excess 0.8 mmol/L (-3.0-3); Arterial Blood Gas Oxygen Sat 96.9 mmHG (95.0-100.0); Arterial COHb 0.2 % (0.0-3.0); Arterial Fraction of Oxyhgb 96.4 % (93.0-99.0); Arterial HCO3 25.9 mmol/L (22.0-26.0); Arterial MetHb 0.3 % (0.0-1.5); Arterial pCO2 42.9 mmhg (35-45); MODE ROOM AIR; Site Right Radial
[2018-05-24] MEDS: ACCU-CHEK XX (02:00)
[2018-05-24 05:44] LABS: ADD MAN DIFF? NO
[2018-05-24 05:48] LABS: WHITE BLOOD COUNT 8.1 10^3/ul (4.8-10.8)
[2018-05-24 05:48] LABS: BASOPHIL # 0.1 10^3/ul (0.0-0.1); BASOPHILS % 0.9 % (0.0-2.0); EOSINOPHILS # 0.3 10^3/ul (0.0-0.5); EOSINOPHILS % 3.6 % (0.0-7.0); HEMATOCRIT 45.5 % (37.0-47.0); HEMOGLOBIN 15.2 g/dl (12.0-16.0); LYMPHOCYTES # 2.3 10^3/ul (0.8-2.9); LYMPHOCYTES % 28.7 % (15.0-51.0); MEAN CORPUSCULAR HEMOGLOBIN 31.7 pg (29.0-33.0); MEAN CORPUSCULAR HGB CONC 33.4 g/dl (32.0-37.0); MEAN PLATELET VOLUME 10.8 fl (7.4-10.4); MONOCYTE # 0.7 10^3/ul (0.3-0.9); MONOCYTES % 8.5 % (0.0-11.0); NEUTROPHIL # 4.7 10^3/ul (1.6-7.5); NEUTROPHILS % 57.9 % (39.0-77.0); PLATELET COUNT 222 10^3/UL (140-415); RED BLOOD COUNT 4.79 10^6/ul (4.20-5.40); RED CELL DISTRIBUTION WIDTH 12.6 % (11.5-14.5)
[2018-05-24 06:16] LABS: ANION GAP 9 (5-13); BLOOD UREA NITROGEN 27 mg/dl (7-20); CALCIUM 9.6 mg/dl (8.4-10.2); CARBON DIOXIDE 28 mmol/L (21-31); CHLORIDE 104 mmol/L (97-110); CREATININE 0.82 mg/dl (0.44-1.00); GLUCOSE 181 mg/dl (70-220); POTASSIUM 3.7 mmol/L (3.5-5.1); SODIUM 141 mmol/L (135-144)
[2018-05-24] MEDS: FUROSEMIDE 40 MG INJ IV ×2 (06:25→18:03)
[2018-05-24] MEDS: PANTOPRAZOLE (EC) 40 MG TAB PO (06:26)
[2018-05-24 06:35] LABS: PHOSPHORUS 4.2 mg/dl (2.5-4.9)
[2018-05-24 06:35] LABS: MAGNESIUM 1.9 mg/dl (1.7-2.5)
[2018-05-24] MEDS: INSULIN ASPART [NOVOLOG] 3 ML PEN SC ×4 (08:21→20:30)
[2018-05-24] MEDS: INSULIN GLARGINE [LANTus] (100 UNITS/ML) SYG SC (08:22)
[2018-05-24] MEDS: DOCUSATE SODIUM 100 MG CAP PO ×2 (08:44→20:30)
[2018-05-24] MEDS: CLOPIDOGREL 75 MG TAB PO (08:44)
[2018-05-24] MEDS: BENAZEPRIL 10 MG TAB PO ×2 (08:45→20:31)
[2018-05-24] MEDS: APIXABAN 5 MG TABLET PO ×2 (08:45→20:32)
[2018-05-24] MEDS: ACETAMINOPHEN 650MG/20.3ML CUP PO (14:23)
[2018-05-25] MEDS: ACCU-CHEK XX (01:01)
[2018-05-25] MEDS: FUROSEMIDE 40 MG INJ IV (05:54)
[2018-05-25] MEDS: PANTOPRAZOLE (EC) 40 MG TAB PO (05:54)
[2018-05-25] MEDS: INSULIN ASPART [NOVOLOG] 3 ML PEN SC ×2 (08:19→12:43)
[2018-05-25] MEDS: BENAZEPRIL 10 MG TAB PO (08:32)
[2018-05-25] MEDS: CLOPIDOGREL 75 MG TAB PO (08:32)
[2018-05-25] MEDS: APIXABAN 5 MG TABLET PO (08:32)
[2018-05-25] MEDS: DOCUSATE SODIUM 100 MG CAP PO (08:32)
[2018-05-25] MEDS: INSULIN GLARGINE [LANTus] (100 UNITS/ML) SYG SC (08:40)
== END 2018-05-25 16:10 | disposition home or self-care (01) | DRG 304 ==
LOC: 6WM 05-24 01:50 → E/R 15:46 → 6WM 05-22 23:26 → ICU 19:13
DX: I16.1 Hypertensive emergency (principal); I50.23 Acute on chronic systolic (congestive) heart failure; I42.9 Cardiomyopathy, unspecified; I11.0 Hypertensive heart disease with heart failure; E78.5 Hyperlipidemia, unspecified; I48.91 Unspecified atrial fibrillation; I25.10 Atherosclerotic heart disease of native coronary artery without angina pectoris; Z95.5 Presence of coronary angioplasty implant and graft; I25.2 Old myocardial infarction; E66.9 Obesity, unspecified; Z68.37 Body mass index [BMI] 37.0-37.9, adult; E11.65 Type 2 diabetes mellitus with hyperglycemia
CPT/HCPCS: 36415; 36600; 71045; 76705; 80048; 80053; 80061; 82550; 82553; 82803; 82962; 83735; 83880; 84100; 84484; 85025; 85610; 85730; 87081; 93005; 96374; 97161; 99291-25

== ENCOUNTER 2018-08-08 18:43 | Inpatient (IN) | payer MEDICARE, MEDICAID ==
[2018-08-08 19:24] LABS: ADD MAN DIFF? NO
[2018-08-08] MEDS: FUROSEMIDE 40 MG INJ IV (19:24)
[2018-08-08] MEDS: ASPIRIN 81 MG TAB PO (19:24)
[2018-08-08 19:32] LABS: BASOPHIL # 0.1 10^3/ul (0.0-0.1); BASOPHILS % 0.7 % (0.0-2.0); EOSINOPHILS # 0.2 10^3/ul (0.0-0.5); EOSINOPHILS % 2.8 % (0.0-7.0); HEMATOCRIT 44.7 % (37.0-47.0); HEMOGLOBIN 14.8 g/dl (12.0-16.0); LYMPHOCYTES # 2.9 10^3/ul (0.8-2.9); LYMPHOCYTES % 35.3 % (15.0-51.0); MEAN CORPUSCULAR HEMOGLOBIN 30.5 pg (29.0-33.0); MEAN CORPUSCULAR HGB CONC 33.1 g/dl (32.0-37.0); MEAN CORPUSCULAR VOLUME 92.2 fl (82.0-101.0); MEAN PLATELET VOLUME 10.4 fl (7.4-10.4); MONOCYTE # 0.6 10^3/ul (0.3-0.9); MONOCYTES % 7.4 % (0.0-11.0); NEUTROPHIL # 4.4 10^3/ul (1.6-7.5); NEUTROPHILS % 53.4 % (39.0-77.0); PLATELET COUNT 231 10^3/UL (140-415); RED BLOOD COUNT 4.85 10^6/ul (4.20-5.40); RED CELL DISTRIBUTION WIDTH 13.5 % (11.5-14.5)
[2018-08-08 19:32] LABS: WHITE BLOOD COUNT 8.2 10^3/ul (4.8-10.8)
[2018-08-08] MEDS: ENALAPRILAT 1.25 MG INJ IV (19:36)
[2018-08-08 19:59] LABS: ALANINE AMINOTRANSFERASE 57 IU/L (13-69); ALBUMIN 4.3 g/dl (3.3-4.9); ALKALINE PHOSPHATASE 131 IU/L (42-121); ANION GAP 9 (5-13); ASPARTATE AMINO TRANSFERASE 74 IU/L (15-46); BILIRUBIN,INDIRECT 0.5 mg/dl (0-1.1); BILIRUBIN,TOTAL 0.5 mg/dl (0.2-1.3); BLOOD UREA NITROGEN 16 mg/dl (7-20); CARBON DIOXIDE 26 mmol/L (21-31); CHLORIDE 108 mmol/L (97-110); CREATININE 0.85 mg/dl (0.44-1.00); GLUCOSE 150 mg/dl (70-220); LIPASE 131 U/L (23-300); POTASSIUM 4.1 mmol/L (3.5-5.1); SODIUM 143 mmol/L (135-144); TOTAL PROTEIN 8.2 g/dl (6.1-8.1)
[2018-08-08 20:09] LABS: TROPONIN-I < 0.012 ng/ml (0.000-0.120)
[2018-08-08] MEDS: NICARDipine HCL 30 MG CAPSULE PO (20:20)
[2018-08-08] MEDS ORDERED: ACETAMINOPHEN 325 MG TAB PO (23:00)
[2018-08-08] MEDS ORDERED: INSULIN ASPART [NOVOLOG] 3 ML PEN SC (23:00)
[2018-08-08] MEDS ORDERED: NITROGLYCERIN (SL) 0.4 MG TAB SL (23:00)
[2018-08-08] MEDS ORDERED: ONDANSETRON 4 MG INJ IV (23:00)
[2018-08-09 05:31] LABS: AADO2 Arterial 48.3 mmHg (7.0-24.0); Allen Test ACCEPTAB; Arterial Base Excess 0.6 mmol/L (-3.0-3); Arterial COHb 0.5 % (0.0-3.0); Arterial Fraction of Oxyhgb 96.4 % (93.0-99.0); Arterial HCO3 26.2 mmol/L (22.0-26.0); Arterial MetHb 0.1 % (0.0-1.5); Arterial pCO2 45.6 mmhg (35-45); MODE NASAL CANNULA; Site Left Radial
[2018-08-09 06:15] LABS: ADD MAN DIFF? NO
[2018-08-09 06:19] LABS: BASOPHIL # 0.1 10^3/ul (0.0-0.1); BASOPHILS % 0.7 % (0.0-2.0); EOSINOPHILS # 0.2 10^3/ul (0.0-0.5); EOSINOPHILS % 2.9 % (0.0-7.0); HEMATOCRIT 42.2 % (37.0-47.0); HEMOGLOBIN 13.7 g/dl (12.0-16.0); LYMPHOCYTES # 2.4 10^3/ul (0.8-2.9); LYMPHOCYTES % 29.6 % (15.0-51.0); MEAN CORPUSCULAR HEMOGLOBIN 30.2 pg (29.0-33.0); MEAN CORPUSCULAR HGB CONC 32.5 g/dl (32.0-37.0); MEAN PLATELET VOLUME 10.5 fl (7.4-10.4); MONOCYTE # 0.6 10^3/ul (0.3-0.9); MONOCYTES % 7.5 % (0.0-11.0); NEUTROPHIL # 4.8 10^3/ul (1.6-7.5); NEUTROPHILS % 58.9 % (39.0-77.0); PLATELET COUNT 206 10^3/UL (140-415); RED BLOOD COUNT 4.54 10^6/ul (4.20-5.40); RED CELL DISTRIBUTION WIDTH 13.3 % (11.5-14.5)
[2018-08-09 06:19] LABS: WHITE BLOOD COUNT 8.1 10^3/ul (4.8-10.8)
[2018-08-09 06:45] LABS: ANION GAP 8 (5-13); BLOOD UREA NITROGEN 17 mg/dl (7-20); CALCIUM 8.7 mg/dl (8.4-10.2); CARBON DIOXIDE 26 mmol/L (21-31); CHLORIDE 110 mmol/L (97-110); CREATININE 0.68 mg/dl (0.44-1.00); GLUCOSE 101 mg/dl (70-220); POTASSIUM 3.5 mmol/L (3.5-5.1); SODIUM 144 mmol/L (135-144)
[2018-08-09] MEDS: ACCU-CHEK XX ×4 (07:38→22:01)
[2018-08-09] MEDS: INSULIN ASPART [NOVOLOG] 3 ML PEN SC ×4 (07:38→22:02)
[2018-08-09] MEDS: metFORMIN 500 MG TAB PO ×2 (08:15→22:00)
[2018-08-09] MEDS: BENAZEPRIL 10 MG TAB PO ×2 (08:15→22:00)
[2018-08-09] MEDS: BISACODYL (EC) 5 MG TAB PO ×2 (08:16→22:05)
[2018-08-09] MEDS: FUROSEMIDE 40 MG INJ IV ×2 (08:16→17:08)
[2018-08-09] MEDS: APIXABAN 5 MG TABLET PO ×2 (11:19→22:00)
[2018-08-09] MEDS: ATORVASTATIN 80 MG TAB PO (21:59)
[2018-08-09] MEDS: INSULIN GLARGINE [LANTus] (100 UNITS/ML) SYG SC (22:08)
[2018-08-10 05:40] LABS: ADD MAN DIFF? NO
[2018-08-10 05:46] LABS: WHITE BLOOD COUNT 8.4 10^3/ul (4.8-10.8)
[2018-08-10 05:46] LABS: BASOPHIL # 0.1 10^3/ul (0.0-0.1); BASOPHILS % 0.8 % (0.0-2.0); EOSINOPHILS # 0.3 10^3/ul (0.0-0.5); EOSINOPHILS % 3.5 % (0.0-7.0); HEMATOCRIT 43.5 % (37.0-47.0); HEMOGLOBIN 14.7 g/dl (12.0-16.0); LYMPHOCYTES # 2.6 10^3/ul (0.8-2.9); LYMPHOCYTES % 30.8 % (15.0-51.0); MEAN CORPUSCULAR HEMOGLOBIN 31.1 pg (29.0-33.0); MEAN CORPUSCULAR HGB CONC 33.8 g/dl (32.0-37.0); MEAN PLATELET VOLUME 10.6 fl (7.4-10.4); MONOCYTE # 0.8 10^3/ul (0.3-0.9); MONOCYTES % 9.3 % (0.0-11.0); NEUTROPHIL # 4.7 10^3/ul (1.6-7.5); NEUTROPHILS % 55.4 % (39.0-77.0); PLATELET COUNT 211 10^3/UL (140-415); RED BLOOD COUNT 4.73 10^6/ul (4.20-5.40); RED CELL DISTRIBUTION WIDTH 13.1 % (11.5-14.5)
[2018-08-10 06:22] LABS: ANION GAP 8 (5-13); BLOOD UREA NITROGEN 25 mg/dl (7-20); CALCIUM 9.2 mg/dl (8.4-10.2); CARBON DIOXIDE 29 mmol/L (21-31); CHLORIDE 107 mmol/L (97-110); CREATININE 0.78 mg/dl (0.44-1.00); GLUCOSE 91 mg/dl (70-220); POTASSIUM 3.6 mmol/L (3.5-5.1); SODIUM 144 mmol/L (135-144)
[2018-08-10 06:38] LABS: B-TYPE NATRIURETIC PEPTIDE 961 PG/ML (0-125)
[2018-08-10] MEDS: FUROSEMIDE 40 MG INJ IV ×2 (06:43→17:13)
[2018-08-10] MEDS: ACCU-CHEK XX ×4 (07:00→21:57)
[2018-08-10] MEDS: INSULIN ASPART [NOVOLOG] 3 ML PEN SC ×4 (07:56→21:00)
[2018-08-10] MEDS: metFORMIN 500 MG TAB PO (08:06)
[2018-08-10] MEDS: APIXABAN 5 MG TABLET PO ×2 (08:06→20:48)
[2018-08-10] MEDS: BISACODYL (EC) 5 MG TAB PO ×2 (08:06→20:47)
[2018-08-10] MEDS: BENAZEPRIL 10 MG TAB PO ×2 (08:07→20:48)
[2018-08-10] MEDS: ATORVASTATIN 80 MG TAB PO (20:47)
[2018-08-10] MEDS: INSULIN GLARGINE [LANTus] (100 UNITS/ML) SYG SC (20:53)
[2018-08-10] MEDS: DEXTROSE 5%-0.45% NACL 1,000 ML IV (23:16)
[2018-08-11] MEDS: FUROSEMIDE 40 MG INJ IV ×2 (05:41→18:16)
[2018-08-11 05:51] LABS: ADD MAN DIFF? NO
[2018-08-11 05:58] LABS: WHITE BLOOD COUNT 8.4 10^3/ul (4.8-10.8)
[2018-08-11 05:58] LABS: BASOPHIL # 0.1 10^3/ul (0.0-0.1); BASOPHILS % 0.8 % (0.0-2.0); EOSINOPHILS # 0.3 10^3/ul (0.0-0.5); EOSINOPHILS % 3.6 % (0.0-7.0); HEMATOCRIT 44.2 % (37.0-47.0); HEMOGLOBIN 14.9 g/dl (12.0-16.0); LYMPHOCYTES # 2.6 10^3/ul (0.8-2.9); LYMPHOCYTES % 30.5 % (15.0-51.0); MEAN CORPUSCULAR HEMOGLOBIN 30.8 pg (29.0-33.0); MEAN CORPUSCULAR HGB CONC 33.7 g/dl (32.0-37.0); MEAN CORPUSCULAR VOLUME 91.3 fl (82.0-101.0); MEAN PLATELET VOLUME 10.4 fl (7.4-10.4); MONOCYTE # 0.7 10^3/ul (0.3-0.9); MONOCYTES % 7.9 % (0.0-11.0); NEUTROPHIL # 4.8 10^3/ul (1.6-7.5); NEUTROPHILS % 56.8 % (39.0-77.0); PLATELET COUNT 237 10^3/UL (140-415); RED BLOOD COUNT 4.84 10^6/ul (4.20-5.40); RED CELL DISTRIBUTION WIDTH 13.1 % (11.5-14.5)
[2018-08-11] MEDS: ACCU-CHEK XX ×4 (06:19→21:12)
[2018-08-11 06:41] LABS: ANION GAP 10 (5-13); BLOOD UREA NITROGEN 26 mg/dl (7-20); CALCIUM 9.1 mg/dl (8.4-10.2); CARBON DIOXIDE 28 mmol/L (21-31); CHLORIDE 105 mmol/L (97-110); CREATININE 0.82 mg/dl (0.44-1.00); GLUCOSE 125 mg/dl (70-220); POTASSIUM 3.5 mmol/L (3.5-5.1); SODIUM 143 mmol/L (135-144)
[2018-08-11] MEDS: INSULIN ASPART [NOVOLOG] 3 ML PEN SC ×4 (08:00→21:00)
[2018-08-11] MEDS: BISACODYL (EC) 5 MG TAB PO ×2 (08:11→21:11)
[2018-08-11] MEDS: APIXABAN 5 MG TABLET PO ×2 (08:11→21:11)
[2018-08-11] MEDS: BENAZEPRIL 10 MG TAB PO ×2 (08:11→21:12)
[2018-08-11 09:32] LABS: TROPONIN-I < 0.012 ng/ml (0.000-0.120)
[2018-08-11] MEDS: REGADENOSON 0.4 MG/5 ML SYG (11:44)
[2018-08-11] MEDS: ATORVASTATIN 80 MG TAB PO (21:11)
[2018-08-11] MEDS: DEXTROSE 5%-0.45% NACL 1,000 ML IV (21:13)
[2018-08-11] MEDS: INSULIN GLARGINE [LANTus] (100 UNITS/ML) SYG SC (21:42)
[2018-08-12 06:23] LABS: FREE T4 (FREE THYROXINE) 1.13 ng/dl (0.78-2.44)
[2018-08-12 06:24] LABS: FREE T3 3.77 pg/ml (2.77-5.27)
[2018-08-12] MEDS: FUROSEMIDE 40 MG INJ IV ×2 (06:45→17:37)
[2018-08-12] MEDS: ACCU-CHEK XX ×4 (07:35→21:07)
[2018-08-12] MEDS: INSULIN ASPART [NOVOLOG] 3 ML PEN SC ×4 (07:46→21:00)
[2018-08-12] MEDS: APIXABAN 5 MG TABLET PO ×2 (08:17→20:51)
[2018-08-12] MEDS: BISACODYL (EC) 5 MG TAB PO ×2 (08:17→20:50)
[2018-08-12] MEDS: BENAZEPRIL 10 MG TAB PO ×2 (08:18→20:51)
[2018-08-12] MEDS ORDERED: GLUCAGON 1 MG INJ IM (14:30)
[2018-08-12] MEDS ORDERED: GLUCOSE GEL 15 GRAM TUBE PO ×2 (14:30)
[2018-08-12] MEDS ORDERED: DEXTROSE 50% 50 ML SYRINGE IV ×2 (14:30)
[2018-08-12] MEDS ORDERED: GLUCOSE GEL 15 GRAM TUBE BUCCAL (14:30)
[2018-08-12] MEDS: ATORVASTATIN 80 MG TAB PO (20:51)
[2018-08-12] MEDS: INSULIN GLARGINE [LANTus] (100 UNITS/ML) SYG SC (21:06)
[2018-08-13] MEDS: FUROSEMIDE 40 MG INJ IV (05:27)
[2018-08-13 06:20] LABS: INR 1.23; PROTIME 15.6 Sec (11.9-14.9); PT RATIO 1.2
[2018-08-13] MEDS: ACCU-CHEK XX ×4 (07:35→21:07)
[2018-08-13] MEDS: INSULIN ASPART [NOVOLOG] 3 ML PEN SC ×4 (07:39→21:00)
[2018-08-13] MEDS: BISACODYL (EC) 5 MG TAB PO ×2 (08:22→21:06)
[2018-08-13] MEDS: BENAZEPRIL 10 MG TAB PO ×2 (08:22→21:06)
[2018-08-13 13:57] LABS: ANION GAP 12 (5-13); BLOOD UREA NITROGEN 30 mg/dl (7-20); CALCIUM 9.3 mg/dl (8.4-10.2); CARBON DIOXIDE 26 mmol/L (21-31); CHLORIDE 104 mmol/L (97-110); CREATININE 0.95 mg/dl (0.44-1.00); GLUCOSE 138 mg/dl (70-220); MAGNESIUM 2.2 mg/dl (1.7-2.5); PHOSPHORUS 4.5 mg/dl (2.5-4.9); POTASSIUM 4.1 mmol/L (3.5-5.1); SODIUM 142 mmol/L (135-144)
[2018-08-13] MEDS: ATORVASTATIN 80 MG TAB PO (21:06)
[2018-08-13] MEDS: INSULIN GLARGINE [LANTus] (100 UNITS/ML) SYG SC (21:19)
[2018-08-14] MEDS: FUROSEMIDE 40 MG INJ IV (05:39)
[2018-08-14] MEDS: ACCU-CHEK XX ×4 (07:00→20:38)
[2018-08-14] MEDS: BENAZEPRIL 10 MG TAB PO ×2 (08:35→20:34)
[2018-08-14] MEDS: BISACODYL (EC) 5 MG TAB PO ×2 (08:35→20:34)
[2018-08-14] MEDS: INSULIN ASPART [NOVOLOG] 3 ML PEN SC ×4 (08:42→20:38)
[2018-08-14] MEDS: ATORVASTATIN 80 MG TAB PO (20:34)
[2018-08-14] MEDS: INSULIN GLARGINE [LANTus] (100 UNITS/ML) SYG SC (20:38)
[2018-08-15] MEDS: FUROSEMIDE 40 MG INJ IV (06:01)
[2018-08-15 06:22] LABS: INR 1.02; PROTIME 13.5 Sec (11.9-14.9); PT RATIO 1.1
[2018-08-15 06:23] LABS: PARTIAL THROMBOPLASTIN TIME 31.5 Sec (23.0-35.0)
[2018-08-15 06:32] LABS: ANION GAP 11 (5-13); BLOOD UREA NITROGEN 32 mg/dl (7-20); CALCIUM 9.5 mg/dl (8.4-10.2); CARBON DIOXIDE 27 mmol/L (21-31); CHLORIDE 105 mmol/L (97-110); CREATININE 0.89 mg/dl (0.44-1.00); GLUCOSE 151 mg/dl (70-220); POTASSIUM 3.6 mmol/L (3.5-5.1); SODIUM 143 mmol/L (135-144)
[2018-08-15] MEDS: POLYMYXIN/BACITRACIN 1L IRRIG IRR (06:39)
[2018-08-15] MEDS: CEFAZOLIN 2 GM/50 ML (PMX) 50 ML IVPB (07:00)
[2018-08-15] MEDS: ACCU-CHEK XX ×4 (07:00→21:28)
[2018-08-15] MEDS ORDERED: LIDOCAINE 1% (MDV) 20 ML INJ (07:23)
[2018-08-15] MEDS ORDERED: BUPIVACAINE 0.5% (SDV) 30 ML INJ (07:23)
[2018-08-15] MEDS ORDERED: IODIXANOL LOCM 100 ML BTL (07:23)
[2018-08-15] MEDS ORDERED: SOD CHLORIDE 0.9% 1,000 ML (07:23)
[2018-08-15] MEDS ORDERED: FENTAnyl 50 MCG/ML VIAL IV (07:30)
[2018-08-15] MEDS ORDERED: HYDROmorphONE 1 MG/5 ML IV SYRINGE IV ×2 (07:30)
[2018-08-15] MEDS ORDERED: PROCHLORPERAZINE 10 MG INJ IV (07:30)
[2018-08-15] MEDS ORDERED: MEPERIDINE 25 MG INJ IV (07:30)
[2018-08-15] MEDS ORDERED: ONDANSETRON 4 MG INJ IV (07:30)
[2018-08-15] MEDS ORDERED: DIPHENHYDRAMINE 50 MG INJ IV (07:30)
[2018-08-15] MEDS ORDERED: FENTAnyl 50 MCG/ML VIAL (07:43)
[2018-08-15] MEDS ORDERED: PROPOFOL 40 ML (07:43)
[2018-08-15] MEDS ORDERED: MIDAZOLAM 1 MG/ML 2 ML INJ (07:43)
[2018-08-15] MEDS: INSULIN ASPART [NOVOLOG] 3 ML PEN SC ×4 (08:00→21:27)
[2018-08-15] MEDS: BENAZEPRIL 10 MG TAB PO ×2 (09:00→21:24)
[2018-08-15] MEDS: BISACODYL (EC) 5 MG TAB PO ×2 (13:01→21:24)
[2018-08-15] MEDS: ATORVASTATIN 80 MG TAB PO (21:23)
[2018-08-15] MEDS: INSULIN GLARGINE [LANTus] (100 UNITS/ML) SYG SC (21:28)
[2018-08-16] MEDS: LEVOTHYROXINE 25 MCG TAB PO (05:28)
[2018-08-16] MEDS: FUROSEMIDE 40 MG INJ IV (05:30)
[2018-08-16] MEDS: ACCU-CHEK XX ×4 (06:13→20:28)
[2018-08-16 06:26] LABS: ADD MAN DIFF? NO
[2018-08-16 06:49] LABS: WHITE BLOOD COUNT 9.3 10^3/ul (4.8-10.8)
[2018-08-16 06:49] LABS: BASOPHIL # 0.1 10^3/ul (0.0-0.1); BASOPHILS % 0.7 % (0.0-2.0); EOSINOPHILS # 0.3 10^3/ul (0.0-0.5); EOSINOPHILS % 3.1 % (0.0-7.0); HEMATOCRIT 43.3 % (37.0-47.0); HEMOGLOBIN 14.4 g/dl (12.0-16.0); LYMPHOCYTES # 2.3 10^3/ul (0.8-2.9); LYMPHOCYTES % 24.7 % (15.0-51.0); MEAN CORPUSCULAR HEMOGLOBIN 31.3 pg (29.0-33.0); MEAN CORPUSCULAR HGB CONC 33.3 g/dl (32.0-37.0); MEAN CORPUSCULAR VOLUME 94.1 fl (82.0-101.0); MONOCYTE # 0.9 10^3/ul (0.3-0.9); MONOCYTES % 9.6 % (0.0-11.0); NEUTROPHIL # 5.8 10^3/ul (1.6-7.5); NEUTROPHILS % 61.7 % (39.0-77.0); PLATELET COUNT 200 10^3/UL (140-415); RED CELL DISTRIBUTION WIDTH 13.2 % (11.5-14.5)
[2018-08-16] MEDS: INSULIN ASPART [NOVOLOG] 3 ML PEN SC ×4 (07:53→20:27)
[2018-08-16 08:21] LABS: ANION GAP 9 (5-13); BLOOD UREA NITROGEN 24 mg/dl (7-20); CALCIUM 9.3 mg/dl (8.4-10.2); CARBON DIOXIDE 27 mmol/L (21-31); CHLORIDE 106 mmol/L (97-110); CREATININE 0.88 mg/dl (0.44-1.00); GLUCOSE 128 mg/dl (70-220); POTASSIUM 3.5 mmol/L (3.5-5.1); SODIUM 142 mmol/L (135-144)
[2018-08-16] MEDS: BISACODYL (EC) 5 MG TAB PO ×2 (08:30→20:27)
[2018-08-16] MEDS: BENAZEPRIL 10 MG TAB PO ×2 (08:30→20:27)
[2018-08-16] MEDS: AMLODIPINE 10 MG TAB PO (11:39)
[2018-08-16] MEDS: APIXABAN 5 MG TABLET PO ×2 (12:20→20:27)
[2018-08-16] MEDS: METOPROLOL 25 MG TAB PO ×2 (12:25→20:27)
[2018-08-16] MEDS: ATORVASTATIN 80 MG TAB PO (20:27)
[2018-08-16] MEDS: INSULIN GLARGINE [LANTus] (100 UNITS/ML) SYG SC (20:46)
[2018-08-17] MEDS: LEVOTHYROXINE 25 MCG TAB PO (06:18)
[2018-08-17 06:19] LABS: ADD MAN DIFF? NO
[2018-08-17] MEDS: FUROSEMIDE 40 MG INJ IV (06:21)
[2018-08-17 06:29] LABS: BASOPHIL # 0.1 10^3/ul (0.0-0.1); BASOPHILS % 0.8 % (0.0-2.0); EOSINOPHILS # 0.3 10^3/ul (0.0-0.5); EOSINOPHILS % 3.2 % (0.0-7.0); HEMATOCRIT 41.7 % (37.0-47.0); HEMOGLOBIN 14.1 g/dl (12.0-16.0); LYMPHOCYTES # 3.1 10^3/ul (0.8-2.9); LYMPHOCYTES % 31.8 % (15.0-51.0); MEAN CORPUSCULAR HEMOGLOBIN 30.7 pg (29.0-33.0); MEAN CORPUSCULAR HGB CONC 33.8 g/dl (32.0-37.0); MEAN CORPUSCULAR VOLUME 90.7 fl (82.0-101.0); MEAN PLATELET VOLUME 10.8 fl (7.4-10.4); MONOCYTE # 0.8 10^3/ul (0.3-0.9); MONOCYTES % 8.4 % (0.0-11.0); NEUTROPHIL # 5.3 10^3/ul (1.6-7.5); NEUTROPHILS % 55.5 % (39.0-77.0); PLATELET COUNT 170 10^3/UL (140-415); RED CELL DISTRIBUTION WIDTH 13.2 % (11.5-14.5)
[2018-08-17 06:29] LABS: WHITE BLOOD COUNT 9.6 10^3/ul (4.8-10.8)
[2018-08-17] MEDS: ACCU-CHEK XX ×3 (07:00→17:52)
[2018-08-17 07:05] LABS: ANION GAP 11 (5-13); BLOOD UREA NITROGEN 18 mg/dl (7-20); CALCIUM 9.1 mg/dl (8.4-10.2); CARBON DIOXIDE 23 mmol/L (21-31); CHLORIDE 108 mmol/L (97-110); CREATININE 0.71 mg/dl (0.44-1.00); GLUCOSE 136 mg/dl (70-220); POTASSIUM 3.8 mmol/L (3.5-5.1); SODIUM 142 mmol/L (135-144)
[2018-08-17] MEDS: INSULIN ASPART [NOVOLOG] 3 ML PEN SC ×3 (08:00→17:52)
[2018-08-17] MEDS: BENAZEPRIL 10 MG TAB PO (10:18)
[2018-08-17] MEDS: AMLODIPINE 10 MG TAB PO (10:18)
[2018-08-17] MEDS: BISACODYL (EC) 5 MG TAB PO (10:18)
[2018-08-17] MEDS: APIXABAN 5 MG TABLET PO (10:19)
[2018-08-17] MEDS: METOPROLOL 25 MG TAB PO (10:19)
== END 2018-08-17 19:29 | disposition home or self-care (01) | DRG 227 ==
LOC: 6WM 08-12 20:47 → E/R 18:43 → 6WM 20:40
PROC: 0JH608Z Insertion of Defibrillator Generator into Chest Subcutaneous Tissue and Fascia, Open Approach (ICD-10-PCS; principal; 2018-08-15 07:30)
PROC: 02HK3KZ Insertion of Defibrillator Lead into Right Ventricle, Percutaneous Approach (ICD-10-PCS; 2018-08-15 07:30)
DX: I11.0 Hypertensive heart disease with heart failure (principal); I16.1 Hypertensive emergency; E11.65 Type 2 diabetes mellitus with hyperglycemia; I50.23 Acute on chronic systolic (congestive) heart failure; I25.2 Old myocardial infarction; E78.5 Hyperlipidemia, unspecified; E11.9 Type 2 diabetes mellitus without complications; I48.91 Unspecified atrial fibrillation; I25.10 Atherosclerotic heart disease of native coronary artery without angina pectoris; R55 Syncope and collapse; E03.9 Hypothyroidism, unspecified; E66.9 Obesity, unspecified; R19.7 Diarrhea, unspecified; I25.5 Ischemic cardiomyopathy; Z91.14 Patient's other noncompliance with medication regimen; Z68.32 Body mass index [BMI] 32.0-32.9, adult; Z95.5 Presence of coronary angioplasty implant and graft
CPT/HCPCS: 33249; 36415; 36600; 71045; 78452; 80048; 80053; 82803; 82962; 83690; 83735; 83880; 84100; 84439; 84443; 84481; 84484; 85025; 85610; 85730; 93005; 93017; 94660; 96374; 96375; 99285-25

== ENCOUNTER 2018-08-29 10:30 | Emergency (ER) | payer MEDICAID, MEDICARE | END 2018-08-29 12:17 | disposition home or self-care (01) | LOC: E/R 10:30 | DX: Z48.00 Encounter for change or removal of nonsurgical wound dressing (principal) | CPT/HCPCS: 99281; Z7502 ==